=== PATIENT | female | born 2000 | race Caucasian/White ===

== ENCOUNTER 2021-04-07 18:44 | Emergency (ER) | payer OTHER ==
[~2021-04-07] VITALS: Ht 170.2 cm; Wt 69.9 kg
[~2021-04-07 18:44] MED LIST: FLON1SPR NARES
[2021-04-07] MEDS ORDERED: PHENAZOPYRIDINE 100 MG TAB PO ONE (20:45)
[2021-04-07] MEDS ORDERED: NITROFURANTOIN (MACROBID) 100 MG CAP PO ONE (20:45)
[2021-04-07] MEDS ORDERED: MACR100C43 PO (20:47)
[2021-04-07] MEDS ORDERED: PYRI1TAB5 PO (20:47)
[2021-04-07 21:00] VITALS: BP 116/62
[2021-04-08] MEDS ORDERED: PYRI1TAB5 PO (18:53)
[2021-04-08] MEDS ORDERED: MACR100C43 PO (18:53)
== END 2021-04-07 21:00 | disposition home or self-care (01) ==
LOC: M ED 18:44
DX: N30.01 Acute cystitis with hematuria (principal); F17.200 Nicotine dependence, unspecified, uncomplicated; Z79.899 Other long term (current) drug therapy

== ENCOUNTER 2021-04-12 08:52 | Day surgery (SDC) | payer OTHER ==
[~2021-04-12] VITALS: Ht 170.2 cm; Wt 70.3 kg
[~2021-04-12 08:52] MED LIST changes: +ACETAMINOPHEN *IV* 1,000 MG IV ONE; +KETOROLAC 60MG 2ML VIAL As Ordered ONE; +LIDOCAINE 1% MDV 20ML VIAL SQ PRN; +LIDOCAINE 2% 100MG/5ML SDV (FOR ANES.) As Ordered ONE; +LR 1,000 ML IV ONE; +MACR100C43 PO; +MIDAZOLAM INJ 2MG/2ML VIAL (J2250 PER 1MG) As Ordered ONE; +ONDANSETRON 4MG/2ML VIAL As Ordered ONE; +PYRI1TAB5 PO; +dexameTHASONE 4 MG/ML 1ML VIAL (J1100 PER 1MG) As Ordered ONE; +fentaNYL 100 MCG/2 ML INJECTION (J3010) As Ordered ONE; +propofoL 200 MG/20 ML VIAL As Ordered ONE
[2021-04-12 09:32] LABS: HEMATOCRIT 39.6 % (36.0-47.0); MEAN CORPUSCULAR HEMOGLOBIN 29.9 pg (27.0-33.0); MEAN CORPUSCULAR HGB CONC 32.8 g/dl (32.0-36.5); PLATELET COUNT, AUTOMATED 242 10^3/uL (150-450); RED BLOOD COUNT 4.35 10^6/uL (4.00-5.40); WHITE BLOOD COUNT 5.9 10^3/uL (4.0-10.0)
[2021-04-12] MEDS ORDERED: LIDOCAINE W/EPINEPHRINE 1% 20ML VIAL As Ordered ONE (10:30)
[2021-04-12] MEDS ORDERED: propofoL 200 MG/20 ML VIAL As Ordered ONE (10:52)
[2021-04-12 12:15] VITALS: BP 110/69
--- NOTE | 2021-04-12 13:08 | ROOPDOC ---
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 COMPLICATIONS: none. REMARKS: none. FINDINGS: acetowhite changes SPECIMENS REMOVED: LEEP specimen (tag at 12 o clock), LEEP hat specimen (tag at 12 o clock) PROCEDURE NOTE: The risks, benefits, and alternatives of the procedure were discussed and written consent obtained. The patient voided en route to the OR. She was sedated and was positioned in low lithotomy in the yellow fins. She was draped in a sterile fashion. An insulated speculum was placed in the vagina and acetic acid applied to the cervix. Telengestasias were noted from 9 to 2 o clock and acetowhite changes from 9 to 4 o clock. 4cc of 1% lidocaine with epinephrine was used bilaterally for a cervical block followed by 2cc injected circumferentially around the cervix exterior. LEEP was performed and the specimen was tagged at 12 o clock. A LEEP hat was performed and the specimen was tagged at 12 o clock. The surgical bed was cauterized with the monopolar ball and monsels was applied. The speculum was removed. There were no complications. The sponge, lap, and needle counts were correct. The patient tolerated the procedure well. MACK WOODS DO Apr 12, 2021 13:08
== END 2021-04-12 12:26 | disposition home or self-care (01) ==
LOC: M SDC 08:52
PROVIDERS: ATTEND Obstetrics & Gynecology
DX: D06.0 Carcinoma in situ of endocervix (principal); R87.810 Cervical high risk human papillomavirus (HPV) DNA test positive; F17.290 Nicotine dependence, other tobacco product, uncomplicated; D64.9 Anemia, unspecified
CPT/HCPCS: 36415; 57522; 58301; 81025; 85027; 86850; 86900; 86901; 88305; 88307; J1100; J1885; J2250; J2405; J3010

== ENCOUNTER → 2022-07-05 | Outpatient (CLI) | payer OTHER ==
[~2022-07-05] MED LIST changes: -ACETAMINOPHEN *IV* 1,000 MG IV ONE; -KETOROLAC 60MG 2ML VIAL As Ordered ONE; -LIDOCAINE 1% MDV 20ML VIAL SQ PRN; -LIDOCAINE 2% 100MG/5ML SDV (FOR ANES.) As Ordered ONE; -LR 1,000 ML IV ONE; -MIDAZOLAM INJ 2MG/2ML VIAL (J2250 PER 1MG) As Ordered ONE; -ONDANSETRON 4MG/2ML VIAL As Ordered ONE; -dexameTHASONE 4 MG/ML 1ML VIAL (J1100 PER 1MG) As Ordered ONE; -fentaNYL 100 MCG/2 ML INJECTION (J3010) As Ordered ONE; -propofoL 200 MG/20 ML VIAL As Ordered ONE
== END ==
LOC: M PLAIMG 15:23
PROVIDERS: ATTEND Physician Assistant
DX: M25.532 Pain in left wrist (principal); R93.6 Abnormal findings on diagnostic imaging of limbs

== ENCOUNTER → 2022-10-10 | Outpatient (CLI) | payer OTHER ==
[~2022-10-10] MED LIST changes: +ISOVUE-300 61% 100ML VIAL As Ordered ONE; +LIDOCAINE 1% MDV 20ML VIAL As Ordered ONE; +PROHANCE 279.3MG/ML 5ML VIAL As Ordered ONE
== END ==
LOC: M RAD 06:41
PROVIDERS: ATTEND Orthopaedic Surgery Hand Surgery
DX: M25.532 Pain in left wrist (principal)
CPT/HCPCS: 25246; 73223; 77002; A9576; Q9967